=== PATIENT | male | born 1990 | race Hispanic/Latino ===

== ENCOUNTER 2017-04-23 05:08 | Emergency (ER) | payer BC, OTHER ==
[2017-04-23] MEDS ORDERED: Ketorolac Tromethamine 30 MG/ML VIAL ONE (05:33)
[2017-04-23] MEDS ORDERED: Ondansetron HCl/PF 4 MG/2 ML Vial ONE ×2 (05:33→05:42)
[2017-04-23] MEDS ORDERED: Morphine 4 MG/ML Carpuject ONE (05:33)
[2017-04-23 05:44] LABS: #Basophils 0.1 thou/uL (0.0-0.2); #Eosinphils 0.5 thou/uL (0.0-0.7); #Lymphocytes 4.5 thou/uL (1.20-3.40); #Monocytes 0.9 thou/uL (0.11-0.59); #Neutrophils 5.7 thou/uL (1.40-6.50); %Basophils 1.2 % (0.0-1.0); %Eosinophils 4.2 % (0.0-10.0); %Lymphocytes 38.6 % (21.0-51.0); %Monocytes 7.9 % (0.0-10.0); %Neutrophils 48.1 % (42.0-75.0); Hemoglobin 15.2 g/dL (14.0-18.0); Mean Corpuscular HGB CONC 32.8 g/dL (32.0-36.0); Mean Corpuscular Hemoglobin 28.2 pg (27.0-31.0); Mean Corpuscular Volume 85.8 fl (80.0-94.0); Mean Platelet Volume 7.3 fL (7.4-10.4); Platelet Count 278 thou/uL (130-400); RBC Distribution Width 12.2 % (11.5-14.5); Red Blood Cell (RBC) Count 5.41 mill/uL (4.70-6.10); White Blood Cell (WBC) Count 11.7 thou/uL (4.8-10.8)
[2017-04-23 05:46] LABS: Bilirubin Small (Negative); Blood, Urine Large (Negative); Clarity CLOUDY (Clear); Glucose, Urine (Dipstick) Negative (Negative); Leukocyte Trace (Negative); Nitrite Negative (Negative); Protein, Urine (Dipstick) 30 mg/dL (Neg-Trace); Specific Gravity, Urine 1.026 (1.002-1.036)
[2017-04-23 05:48] LABS: Bacteria/HPF None Seen HPF (None Seen); Pathc Cast-AUWi Flag 0.81 (0-2.49); RBC/HPF GREATER THAN 50-TNTC HPF (0-3)
[2017-04-23 05:55] LABS: ALT (SGPT) 37 U/L (8-55); AST (SGOT) 21 U/L (5-34); Albumin 4.6 g/dL (3.5-5.0); Alkaline Phosphatase 80 U/L (40-150); Anion Gap 16 mmol/L (10-20); BUN (Urea Nitrogen) 14 mg/dL (8.9-20.6); Bilirubin, Total 0.5 mg/dL (0.2-1.2); Calc. Creatinine Clearance 0 mL/min (70-130); Calcium 9.7 mg/dL (7.8-10.44); Carbon Dioxide 22 mmol/L (22-29); Chloride 104 mmol/L (98-107); Estimated GFR-MDRD Greater than 90; Glucose 123 mg/dL (70-105); Lipase 16 U/L (8-78); Potassium 3.5 mmol/L (3.5-5.1); Protein, Total 7.6 g/dL (6.0-8.3); Sodium 138 mmol/L (136-145)
[2017-04-23 06:08] LABS: Hyaline Casts/LPF NONE SEEN LPF (0-3 Hyaline); Renal Epithelial None Seen HPF (0-3); Transitional Epithelial NONE SEEN HPF (0-3)
--- NOTE | 2017-04-23 08:05 | CT ---
PRELIMINARY REPORT/[facility]/EMERGENCY AFTER HOURS PROCEDURE: EXAM: CT Abdomen and Pelvis Without Intravenous Contrast EXAM DATE/TIME: Exam ordered 04/23/2017 5:51 AM CLINICAL HISTORY: 26 years old, male; Pain; Abdominal pain; Generalized; Patient HX: R/O stone TECHNIQUE: Axial computed tomography images of the abdomen and pelvis without intravenous contrast. Coronal reformatted images were created and reviewed. COMPARISON: No relevant prior studies available. FINDINGS: Lower thorax: The visualized portions of the lung bases are normal. ABDOMEN: Liver: There are no focal liver lesions present. Gallbladder and bile ducts: The gallbladder is normal. There is no evidence of biliary ductal dilatio n. No calcified stones. Pancreas: The pancreas is normal. No ductal dilation. Spleen: The spleen is normal. Adrenals: The adrenal glands are normal. Kidneys and ureters: The kidneys are normal. The kidneys are normal. No obstructing stones. No hydron ephrosis. Stomach and bowel: The stomach is normal. The duodenum is unremarkable. There is mild colonic constip ation. No obstruction. No mucosal thickening. Appendix: A normal appendix is identified. PELVIS: Bladder: The bladder is normal. No stones. Reproductive: The prostate gland demonstrates nonspecific parenchymal calcifications. ABDOMEN and PELVIS: Intraperitoneal space: Normal. No free air. No significant fluid collection. Bones/joints: No acute fracture. No dislocation. Soft tissues: Normal. Vasculature: Normal. No abdominal aortic aneurysm. Lymph nodes: Normal. No enlarged lymph nodes. IMPRESSION: 1. No acute abdominal pelvic pathology. 2. No ureterolithiasis or hydronephrosis on either side. Thank you for allowing us to participate in the care of your patient. Dictated and Authenticated by: Hardy Law MD 04/23/2017 6:08 AM Central Time ([place] & [place]) FINAL REPORT EMERGENT AFTER HOURS CT OF THE ABDOMEN AND PELVIS WITHOUT CONTRAST: FINDINGS/IMPRESSION: I agree with the findings and impression given in the preliminary report per [facility] physician. No evidence of acute intraabdominal/pelvic abnormality. POS: [facility]
== END 2017-04-23 06:41 | disposition home or self-care (01) ==
LOC: ERS 05:08
DX: R10.9 Unspecified abdominal pain (principal); Z79.899 Other long term (current) drug therapy
CPT/HCPCS: 74176; 80053; 81003; 81015; 83690; 85025; 96361; 96374; 96375; J1885; J2270; J2405

== ENCOUNTER 2024-01-11 07:01 | Day surgery (SDC) | payer BC ==
[2024-01-10 13:28] VITALS: BMI 31.5
[2024-01-11] MEDS ORDERED: fentaNYL 50 mcg/mL 1 mL Vial ONE ×2 (07:30→08:02)
[2024-01-11] MEDS ORDERED: EPINEPHrine 1 MG/ML VIAL ONE (07:30)
[2024-01-11] MEDS ORDERED: Midazolam HCl 2 mg/2 ml Vial ONE (07:31)
[2024-01-11] MEDS ORDERED: Bupivacaine PF 0.5% 30 ML VIAL ONE (07:31)
[2024-01-11] MEDS ORDERED: CEFAZOLIN 2 GM VIAL ONE (07:41)
[2024-01-11] MEDS ORDERED: Sodium Chloride 0.9% 100 ML ONE (07:41)
[2024-01-11] MEDS ORDERED: Lidocaine 1% PF 5 ML VIAL ONE (08:02)
[2024-01-11] MEDS ORDERED: Dexamethasone 20 MG/5 ML VIAL ONE (08:02)
[2024-01-11] MEDS ORDERED: PROPOFOL 20 ML ONE (08:02)
[2024-01-11] MEDS ORDERED: Ondansetron PF 4 MG/2 ML Vial ONE (08:02)
[2024-01-11] MEDS ORDERED: Tranexamic Acid 1,000 MG/10 ML VIAL ONE (08:21)
[2024-01-11] MEDS ORDERED: fentaNYL PF 100 MCG/2 ML SYRINGE ONE ×2 (08:30→09:55)
[2024-01-11] MEDS ORDERED: Ketorolac Tromethamine 30 MG (1 mL) VIAL ONE (08:51)
== END 2024-01-11 15:28 | disposition home or self-care (01) ==
LOC: SDC 07:01
PROVIDERS: ATTEND Student in an Organized Health Care Education/Training Program
PROC: 0QSK04Z Reposition Left Fibula with Internal Fixation Device, Open Approach (ICD-10-PCS; principal; 2024-01-11)
PROC: 0QSH0ZZ Reposition Left Tibia, Open Approach (ICD-10-PCS; principal; 2024-01-11)
DX: S82.842A Displaced bimalleolar fracture of left lower leg, initial encounter for closed fracture (principal); Z79.899 Other long term (current) drug therapy; W01.0XXA Fall on same level from slipping, tripping and stumbling without subsequent striking against object, initial encounter
CPT/HCPCS: C1713; J0171; J0665; J1100; J1885; J2250; J2405; J2704; J3010